=== PATIENT | female | born 1940 | race Caucasian/White ===

== ENCOUNTER 2016-07-07 17:56 | Emergency (ER) | payer OTHER ==
[2016-07-07] MEDS ORDERED: METOPROLOL SUCC25 M1 PO (18:02)
[2016-07-07] MEDS ORDERED: LIPITOR 10M10 MG/TAB PO (18:02)
[2016-07-07] MEDS ORDERED: NORCO 325 MG-51 TA1 PO (18:50)
[2016-07-07 19:02] VITALS: BP 139/88
== END 2016-07-07 19:03 | disposition home or self-care (01) ==
LOC: ED 17:56
DX: S83.412A Sprain of medial collateral ligament of left knee, initial encounter (principal); X50.1XXA Overexertion from prolonged static or awkward postures, initial encounter
CPT/HCPCS: L1830